=== PATIENT | female | born 1995 | race Two or more races ===

== ENCOUNTER 2018-10-30 20:36 | Emergency (ER) | payer SELFPAY ==
[~2018-10-30] VITALS: Ht 160 cm; Wt 54.4 kg
[2018-10-30 20:40] VITALS: BP 108/51
[2018-10-30] MEDS ORDERED: TRIA15OI TP (20:54)
[2018-10-30] MEDS ORDERED: HYDR25TA PO (20:54)
--- NOTE | 2018-10-30 20:54 | PHYS DOC ---
Adult General Chief Complaint Chief Complaint: SKIN RASH/ABSCESS HPI HPI Patient is a 23 year old female who presents with a pruritic rash that begun yesterday. Patient denies any new soaps or laundry detergents. Review of Systems Review of Systems Constitutional: Denies fever or chills [] Musculoskeletal: Denies back pain or joint pain [] Integument:Reports rash Neurologic: Denies headache, focal weakness or sensory changes [] All other systems were reviewed and found to be within normal limits, except as documented in this note. Allergies Allergies Allergies Coded Allergies Type Severity Reaction Last Updated Verified No Known Drug Allergies 10/30/18 No Physical Exam Physical Exam Constitutional: Well developed, well nourished, no acute distress, non-toxic appearance. [] Skin: Warm, dry, upper tarso with erythematous rash suspicious of insect bites. Back: No tenderness, no CVA tenderness. [] Extremities: No tenderness, no cyanosis, no clubbing, ROM intact, no edema. [] Neurologic: Alert and oriented X 3, normal motor function, normal sensory function, no focal deficits noted. [] Psychologic: Affect normal, judgement normal, mood normal. [] EKG EKG [] Radiology/Procedures Radiology/Procedures [] Course & Med Decision Making Course & Med Decision Making Pertinent Labs and Imaging studies reviewed. (See chart for details) This is a 23-year-old female patient presenting to the ED today with a pruritic rash suspicious of insect bites. Patient will be discharged with Atarax, triamcinolone cream. Follow-up with newspaper subscription solicitor in 2 weeks. Dragon Disclaimer Dragon Disclaimer This electronic medical record was generated, in whole or in part, using a voice recognition dictation system. Departure Departure Impression: Primary Impression: Insect bite Disposition: HOME, SELF-CARE Condition: STABLE Referrals: CARMELO LOBATO MD follow up in 2 weeks Patient Instructions: Insect Bite, [id number] Additional Instructions: You were evaluated in the emergency room with a rash suspicious of insect bites. Use the medication prescribed as ordered. Follow-up with your doctor in 2 weeks of the provided newspaper subscription solicitor. Scripts Triamcinolone Acetonide (TRIAMCINOLONE ACETONIDE 0.1% OINT) 15 Gm Oint...g. 1 SOFIA TP BID for WOUND CARE, #1 TUBE Prov: RJ MOREIRA TOUR PRODUCTION SUPERVISOR 10/30/18 Hydroxyzine Hcl (HYDROXYZINE HCL) 25 Mg Tablet 1 TAB PO TID, #30 TAB Prov: RJ MOREIRA APRN 10/30/18 Problem Qualifiers Primary Impression: Insect bite Encounter type: initial encounter Site of insect bite: abdominal wall Qualified Codes: S30.861A - Insect bite (nonvenomous) of abdominal wall, initial encounter; W57.XXXA - Bitten or stung by nonvenomous insect and other nonvenomous arthropods, initial encounter RJ MOREIRA APRN Oct 30, 2018 20:54
== END 2018-10-30 20:57 | disposition home or self-care (01) ==
LOC: ER 20:36
DX: S30.861A Insect bite (nonvenomous) of abdominal wall, initial encounter (principal); L29.9 Pruritus, unspecified; W57.XXXA Bitten or stung by nonvenomous insect and other nonvenomous arthropods, initial encounter; Y93.89 Activity, other specified; Y92.89 Other specified places as the place of occurrence of the external cause; Y99.8 Other external cause status
CPT/HCPCS: 99283